=== PATIENT | male | born 1935 | race Caucasian/White ===

== ENCOUNTER → 2016-10-01 | Outpatient (CLI) | payer OTHER, MEDICARE ==
[~2016-10-01] VITALS: Ht 177.8 cm; Wt 81.7 kg
[~2016-10-01] MED LIST: ALEVE220 MG PO; ASPIR 8181 MG PO; ASPIRIN81 M2 PO; ATORVASTATIN CA40 MG PO; B COMPLETE1 EAC1 PO; IMODIUM A-D2 M1 PO; METAMUCIL PAC1 UDPKT PO; MOTION RELIEF25 MG PO; SERTRALINE HCL50 MG PO; VALIUM2 MG PO; VITAMIN D2000 UNIT PO; ZOFRAN ODT4 MG PO
--- NOTE | ~2016-10-01 | P ---
[facility] [place] [address] PROCEDURE REPORT Name: ANISHA WARD Room #: REG [facility].#: [id number] Admission: 10/01/16 Attend Phys: Reji Beverly MD Discharge: Date of : 31 Report #: [id number] THIS REPORT FOR: //name// CC: Syeda Beverly DATE OF SERVICE: 10/01/2016 BRIEF HISTORY: The patient is an 81-year-old male who has a personal history of colon polyps and family history of colon cancer, father age 72. The patient now presents with chronic diarrhea, which has been present for more than a year. He may have loose and watery stools, not all days, but most days in a week. PREOPERATIVE DIAGNOSIS: Chronic diarrhea. POSTOPERATIVE DIAGNOSES: Moderate diverticulosis coli, sigmoid colon. MEDICATIONS: Deep sedation with propofol per anesthesia. SPECIMEN: 1. Random biopsies, proximal colon. 2. Random biopsies, distal colon and rectum. ESTIMATED BLOOD LOSS: 3 mL. PROCEDURE: Colonoscopy to cecum and terminal ileum with biopsy. FINDINGS: Prior to propofol sedation, procedure of colonoscopy discussed with the patient as well as potential risks and its complications. He indicates he understands and desires to proceed. DESCRIPTION OF PROCEDURE: With the patient in left lateral decubitus position, digital examination was completed which revealed no abnormalities. Subsequently, the [employer] video colonoscope was introduced into the rectum, advanced under direct vision to the cecum. Done with minimal difficulty. Cecum was identified by the ileocecal valve and the appendiceal orifice. I was able to visualize the distal segment of the terminal ileum, which was inspected and noted to be unremarkable. At that point, the scope was slowly withdrawn and careful circumferential views obtained. Upon slow withdrawal of the scope, the prep was noted to be excellent. The mucosa was within normal limits, normal vascular pattern, normal light reflex. As we withdrew the scope, no mucosal abnormalities were seen. No neoplastic lesions were seen. He had normal colonic mucosa throughout the entire exam. No inflammatory changes were seen. No polyps were seen. Random biopsies obtained of the proximal colon as well as the distal colon and rectum. In the sigmoid colon, there was moderately severe [facility] [address] [place] [address] PROCEDURE REPORT Name: ANISHA WARD Room #: [facility].#: [id number] Admission: 10/01/16 Attend Phys: Reji Beverly MD Discharge: Date of : 31 Report #: [id number] diverticular disease without endoscopic evidence of diverticulitis. Scope was withdrawn in the rectum. Upon retroflexion, no abnormalities were seen. Scope was withdrawn and the patient tolerated the procedure well. CONDITION OF THE PATIENT UPON DISCHARGE: Following procedure, the patient drowsy, aroused, conversant and will be discharged home when fully ambulatory. INSTRUCTIONS TO THE PATIENT AND FAMILY AT THE TIME OF DISCHARGE: As far as his diarrhea, I do not see any inflammatory changes. We will follow up on biopsies to evaluate for microscopic colitis. Will also have my office obtain a celiac screen to evaluate for celiac disease in this elderly patient. In the meantime, we will have him use a fiber supplement. He does have some incontinence. He may be having more issues with incontinence and diarrhea. Fiber supplement may be helpful. He may use Imodium as needed. He may use daily if necessary. If an etiology cannot be identified, then we will treat symptomatically likely with a bile binding agent such as Colestid or Questran. At this point in life, he is not likely to benefit from routine screening or surveillance colonoscopy. The last colonoscopy was 10 years ago. Withdrawal time from the cecum was 13 minutes. <ELECTRONICALLY SIGNED> By: Reji Beverly MD 10/02/16 1228 1022 [id number] Reji Beverly MD /nt
--- NOTE | ~2016-10-01 | S ---
[facility] [place] [address] SURGICAL PATH RPT PROCEDURE Name: ISAC WARD Room #: REG [facility]..#: [id number] Admission: 10/01/16 Date of : 31 Discharge: Report #: [id number] Path Case #: [id number] PATHOLOGY REPORT COLLECTION DATE: 10/01/2016 RECEIVED DATE: 10/01/2016 SUBMITTING PHYS: Dr. Reji Beverly OTHER PHYS: Dr Syeda Bernal SPECIMEN(S) RECEIVED: A.Random proximal colon bx B.Random distal colon bx * * * * * * * * * * * * FINAL DIAGNOSIS: A. "Random proximal colon biopsy", biopsy: - Colonic mucosa with focal active colitis and mildly increased intraepithelial lymphocytes; no dysplasia seen. (See comment). B. "Random distal colon biopsy", biopsy: - Colonic mucosa with focal active colitis and occasional intraepithelial lymphocytes. (See comment). COMMENT: Specimens A and B are similar histologically with specimen B having slightly more acute inflammation. Both specimens A and B show focal active colitis. Focal active colitis can be seen in resolving infectious-type colitis, incidentally with bowel preparation and chronic idiopathic inflammatory bowel disease. No chronic architectural changes to suggest chronic inflammatory bowel disease are identified. Specimen A has mildly increased intraepithelial lymphocytes and specimen B has occasional intraepithelial lymphocytes. 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 No dysplasia is seen in either of the biopsies. Clinical and endoscopic correlation is required. PATHOLOGIST: Kaity L. Johny, M.D. REPORT ELECTRONICALLY SIGNED BY: Kaity Mcclain M.D. DATE/TIME: 10/05/2016 22:19 * * * * * * * * * * * * GROSS PATHOLOGY: A. Received in formalin labeled "Isac Ward, proximal colon biopsy," are 7 segments of caba soft tissue measuring 1.1 x 0.8 x 0.3 cm in aggregate dimensions and ranging from 0.3 to 0.6 cm in maximum dimension. The specimen is submitted entirely in cassette A1. [facility] [place] [place] [address] SURGICAL PATH RPT PROCEDURE Name: ISAC WARD Room #: REG [facility].#: [id number] Admission: 10/01/16 Date of : 31 Discharge: Report #: [id number] Path Case #: [id number] B. Received in formalin labeled "Isac Ward, distal colon biopsy," are 9 segments of caba soft tissue measuring 1.0 x 0.8 x 0.3 cm in aggregate dimensions and ranging from 0.3 to 0.5 cm in maximum dimension. The specimen is submitted entirely in cassette B1. (KAH; 10/04/2016) CLINICAL HISTORY: Pre-op dx: Diarrhea Post-op dx: Diverticulosis INITIAL CPT CODE(S): A; 62756 B; 36375 Professional services performed by [facility] at [address], [place] [address] Technical services performed by [facility] at [address] [place] [address], [address], [place] [address]. [facility] [address] [place] [address] PHONE: [phone] DIRECTOR: Qamar Perdue M.D. * * * END OF REPORT * * *
== END | disposition home or self-care (01) ==
LOC: GI 08:36
DX: A08.8 Other specified intestinal infections (principal); K57.30 Diverticulosis of large intestine without perforation or abscess without bleeding
CPT/HCPCS: 62110; 62900